=== PATIENT | male | born 2000 | race Caucasian/White ===

== ENCOUNTER 2021-02-10 20:23 | Emergency (ER) | payer BC, SELFPAY ==
[2021-02-10 20:24] VITALS: BP 126/84; PULSE 98; RESP 18; TEMP 36.3; O2SAT 98; BMI 28.5
--- NOTE | 2021-02-10 20:46 | CT_ITS ---
HISTORY: Trauma, head injury TECHNIQUE: Multiple axial images were obtained of the brain without intravenous contrast. A radiation dose optimization technique was used for this scan. IV Contrast dosage and agent: None. COMPARISON: None FINDINGS: # of images incl. paperwork: 241 PARANASAL SINUSES AND MASTOID AIR CELLS: Clear. INTRACRANIAL HEMORRHAGE: None. BRAIN PARENCHYMA: No CT evidence of stroke. No intracranial masses. There is preservation of the flores/white matter interface. Posterior fossa structures are unremarkable. CSF SPACES: Appropriate for age. There is no hydrocephalus. MASS EFFECT: None. CALVARIUM: Intact. CT/Brain/Head without Contrast IMPRESSION: No acute intracranial findings. Individualized dose optimization techniques were used for this CT. at 2110 Reported and signed by: Brandon Martino MD Electronically Signed: Brandon Martino MD at 21:08 EDT Tel , Service support ,
--- NOTE | 2021-02-10 20:58 | EX.ED.GENINJ ---
HPI History of Present Illness Chief Complaint: Head Injury Informant: patient Onset/Context/Timing Onset: Today Mechanism/Context: Blunt Injury Location of pain/injuries: - (Right periorbital area) Quality of Pain: Stabbing and Throbbing Associated Symptoms Associated Symptoms: Positive for Parasthesias; Negative for Weakness Narrative Narrative: Patient presents with head injury that occurred today. Patient was playing baseball and went to field a ball. Patient states that another person's knee hit him in his right frontal area over his eyebrow. Patient thinks he had a brief loss of consciousness for approximately 1 second. Patient admits to some tingling in the right periorbital area. Patient was able to ambulate after the fall. Patient describes his pain as throbbing and stabbing. Patient states his last tetanus was less than 5 years ago. Patient denies any other injuries. Tetanus Immunization: <5 years PFSH PFSH no medical history Home Medications NK 02/10/21 [History Last Taken Unknown] Allergy/AdvReac Type Severity Reaction Status Date / Time Penicillins Allergy PT UNSURE Verified 02/10/21 20:27 OF REACTION no surgical history Social History Smoking Status: Never smoker ROS ROS ED Constitutional Constitutional ED: Denies chills or fever(s) Eyes Eyes: Reports blurry vision right; Denies change in vision ENT ENT ED: Denies rhinorrhea or sore throat Cardiovascular Cardiovascular: Denies chest pain or palpitations Respiratory/Chest Respiratory/Chest: Denies cough or dyspnea Gastrointestinal Gastrointestinal: Denies nausea or vomiting Genitourinary Genitourinary ED: Denies dysuria or hematuria Musculoskeletal Musculoskeletal: Reports back pain and neck pain Integumentary Denies abscess or rash Neurologic Neurologic: Reports headache(s) and paresthesias; Denies weakness Allergic/Immunologic Allergic/Immunologic ED: Denies mouth swelling or urticaria EXAM Physical Exam Const Vital Signs: 02/10/21 20:24 02/10/21 22:05 Temperature 97.3 F L Temperature Source Temporal Pulse Rate 98 94 Respiratory Rate 18 15 Blood Pressure 126/84 H 122/78 H Blood Pressure Mean 98 Pulse Ox 98 98 Oxygen Delivery Method Room Air Positive well nourished and well developed General Appearance ED: well developed HEENT Reports TM's clear HEENT Narrative: There is a 3 cm full-thickness linear laceration over the right eyebrow area. There is moderate gapping of the wound margins. There is no active bleeding. There is no bony crepitance or step-off. There are no foreign bodies noted. Tympanic Membrane ED: Yes TM's clear bilateral Eyes PERRL and EOMs intact bilaterally Neuro oriented x3, CN's II-XII intact bilaterally, moves all extremities, no focal motor deficits and no sensory deficits noted Santana Coma Scale: document GCS findings Spontaneous Obeys Commands Oriented 15 Sensorium / Orientation: alert Psych mental status grossly normal PROC Procedures Lacerations Right Eyebrow: Length: 3 cm Depth: Sub Q Shape: Linear Prep: Sterile Conditions and Shure-Clens Laceration repair: Irrigated, Lidocaine with epi, Local and Skin sutures Irrigated (ml): 60 Number of Sutures/[place]: 5 Suture Information: Ethilon, Simple and 5-0 MDM MDM MDM Narrative Medical decision making narrative: CT scan of the brain was obtained. There is no acute intracranial abnormality. This was interpreted by the radiologist and reviewed by myself. The wound was cleaned and irrigated with copious amounts of normal saline. The wound was anesthetized with 1% lidocaine with epinephrine locally. The wound was closed with 5 simple interrupted #5-0 nylon sutures under sterile technique. Patient tolerated the procedure well. Bacitracin dressing was applied. Patient was given head injury instructions. Patient was instructed to follow-up with his primary care physician in 5 days for wound recheck and suture removal. Patient understood and was agreeable with the plan. All questions were answered. Radiography Diagnostic Testing: Radiology Impression Brain CT 02/10/21 20:46 IMPRESSION: No acute intracranial findings. Individualized dose optimization techniques were used for this CT. at 2110 Reported and signed by: Brandon Martino MD Electronically Signed: Brandon Martino MD at 21:08 EDT Tel , Service support , Discharge Plan Triage Chief Complaint: Head Injury ED Provider: Brayden Joaquin Dx/Rx/DC Orders Clinical Impression: Laceration of right eyebrow, Closed head injury Instructions: ED Head Injury (Adult), ED Laceration, Face: Stitches or Tape Prescriptions: No Action NK RF: 0 Primary Care Provider: Epifanio Ontiveros Referrals: Epifanio Ontiveros MD [Primary Care Provider] - 5 Days for suture removal Disposition Disposition: Home, self care Discharge Date/Time: 02/10/21 22:07
[2021-02-10 22:05] VITALS: BP 122/78; PULSE 94; RESP 15; O2SAT 98
== END 2021-02-10 22:07 | disposition home or self-care (01) ==
LOC: ED 21:06
PROVIDERS: Emergency Provider Emergency Medicine; PCP Family Medicine
DX: S01.111A Laceration without foreign body of right eyelid and periocular area, initial encounter (principal); W03.XXXA Other fall on same level due to collision with another person, initial encounter; Y93.64 Activity, baseball; Y92.9 Unspecified place or not applicable
CPT/HCPCS: 12013; 70450; 99283

== ENCOUNTER 2021-06-20 19:21 | Emergency (ER) | payer OTHER, BC, SELFPAY ==
[2021-06-20 19:22] VITALS: BP 134/92; PULSE 94; RESP 16; TEMP 36.7; O2SAT 99; BMI 29.1
[2021-06-20 21:28] VITALS: RESP 16
--- NOTE | 2021-06-20 22:15 | ED.VIS.LOWEX ---
HPI History of Present Illness Chief Complaint: Wound Narrative Narrative: 20-year-old male presenting with left knee pain and cellulitis. Patient states he was seen in urgent care today and discharged out of there with clindamycin. He was not able to fill this prescription because it was sent to late in the evening. He does have slight spreading of the erythema outside the first previous written lines and on the left knee. He does not have difficulty bending or moving his knee. He has no systemic signs or symptoms. PFSH PFSH Home Medications clindamycin HCl 450 mg PO TID 10 Days #90 cap 06/20/21 [Rx Last Taken Unknown] Allergy/AdvReac Type Severity Reaction Status Date / Time Penicillins Allergy PT UNSURE Verified 06/20/21 19:26 OF REACTION Social History Smoking Status: Never smoker ROS ROS ED Constitutional Constitutional ED: Denies chills or fever(s) Eyes Eyes: Denies change in vision ENT ENT ED: Denies rhinorrhea or sore throat Cardiovascular Cardiovascular: Denies chest pain or palpitations Respiratory/Chest Respiratory/Chest: Denies cough or dyspnea Gastrointestinal Gastrointestinal: Denies abdominal pain, nausea or vomiting Genitourinary Genitourinary ED: Denies dysuria or hematuria Musculoskeletal Musculoskeletal: Denies myalgias Integumentary Reports other Details: Cellulitis over left knee Neurologic Neurologic: Denies headache(s) or paresthesias EXAM Physical Exam Const Vital Signs: 06/20/21 19:22 06/20/21 21:28 Temperature 98.1 F Temperature Source Temporal Pulse Rate 94 Respiratory Rate 16 16 Blood Pressure 134/92 H Blood Pressure Mean 106 Pulse Ox 99 Oxygen Delivery Method Room Air Positive well nourished General Appearance ED: NAD HEENT normocephalic and atraumatic Resp normal respiratory effort and clear to auscultation bilaterally Cardio regular rate and regular rhythm Extremity Extremity Narrative: Left knee has no short arc range of motion pain. Patient is able to ambulate. Extensor mechanism is intact. There is erythema overlying the left knee with the previous marked line and the erythema has spread outside of this. No crepitance is palpated. Neuro oriented x3 Sensorium / Orientation: alert Psych mental status grossly normal Skin Skin Narrative: As described above MDM MDM MDM Narrative Medical decision making narrative: Patient does have slight spreading of the erythema outside of the margins previously marked this earlier today however he was not able to get his antibiotics filled today because the pharmacy was closed. He does not have any systemic signs or symptoms. He does not have any signs of intra-articular infection. Patient will be started on clindamycin with his first dose in the ED based on his allergies to penicillin and Bactrim. Patient is to continue to monitor this. He is supposed to follow-up with [facility] [employer]. tomorrow. He is to make this appointment. Patient is discharged home in stable condition. Impression: 1. Left knee cellulitis Discharge Plan Triage Chief Complaint: Wound Other Complaint: Upper Extremity Injury ED Provider: Ulysses Kam Dx/Rx/DC Orders Instructions: ED Cellulitis Prescriptions: New clindamycin HCl 150 mg capsule 450 mg PO TID 10 Days Qty: 90 RF: 0 Primary Care Provider: Epifanio Ontiveros Referrals: Epifanio Ontiveros MD [Primary Care Provider] - Disposition Disposition: Home, Self Care
[2021-06-20 22:18] VITALS: RESP 16
== END 2021-06-20 22:42 | disposition home or self-care (01) ==
PROVIDERS: Emergency Provider Student in an Organized Health Care Education/Training Program; PCP Family Medicine
DX: L03.116 Cellulitis of left lower limb (principal)
CPT/HCPCS: 99282